=== PATIENT | male | born 2000 | race Caucasian/White ===

== ENCOUNTER 2024-02-03 12:31 | Emergency (ER) | payer OTHER ==
[2024-02-03 13:05] VITALS: BP 134/79; PULSE 76; RESP 18; TEMP 97.7; BMI 25.0
== END 2024-02-03 13:02 | disposition home or self-care (01) ==
LOC: JER 12:31 → JERFT 12:31
DX: M79.651 Pain in right thigh (principal)
CPT/HCPCS: 99283-25

== ENCOUNTER 2024-06-10 20:46 | Emergency (ER) | payer OTHER ==
[2024-06-10 20:51] VITALS: BP 136/95; PULSE 64; RESP 22; TEMP 97.6; BMI 25.8
[2024-06-10] MEDS ORDERED: ACETAMINOPHEN INJECTION 100 ML ONE (21:56)
[2024-06-10] MEDS ORDERED: ONDANSETRON 4 MG/2 ML VIAL ONE (21:56)
[2024-06-10] MEDS: ONDANSETRON 4 MG/2 ML VIAL IVPUSH ONE (22:06)
[2024-06-10] MEDS: SODIUM CHLORIDE 0.9% 1000 ML INFUS.BAG IV ONE (22:06)
[2024-06-10] MEDS: ACETAMINOPHEN 1000 MG/100 ML BAG IVPB ONE (22:07)
[2024-06-10 22:09] LABS: BASO % 0.8 % (0-2.0); HEMATOCRIT 52.8 % (35.4-49); HEMOGLOBIN 16.7 GM/dL (11.7-16.9); LYMPH % 3.4 % (8-40); MCH 27.4 pg (25.7-33.7); MCHC 31.5 g/dl (32.0-35.9); MEAN PLT VOLUME 9.8 fl (7.5-11.1); MONO % 3.3 % (3.8-10.2); NEUT % 91.5 % (42.8-82.8); PLATELET COUNT 229 10^3/uL (134-434); RBC 6.07 M/mm3 (4.00-5.60); RDW 15.1 % (11.9-15.9); WHITE BLOOD COUNT 19.1 K/mm3 (4.0-10.0)
[2024-06-10 22:26] LABS: POTASSIUM 4.3 mmol/L (3.5-5.1)
[2024-06-10 22:29] LABS: CALCIUM 10.6 mg/dL (8.5-10.1)
[2024-06-10 22:30] LABS: ALBUMIN 5.1 g/dl (3.4-5.0); BLOOD UREA NITROGEN 15.5 mg/dL (7-18)
[2024-06-10 22:33] LABS: CREATININE 1.3 mg/dL (0.55-1.3)
[2024-06-10 22:34] LABS: TOT PROT 9.3 g/dl (6.4-8.2)
[2024-06-10 22:57] LABS: ANISOCYTOSIS 1+; MACROCYTOSIS 1+; TEAR DROP CELLS 1+
[2024-06-10 23:03] LABS: BILIRUBIN,TOTAL 0.8 mg/dL (0.2-1)
== END 2024-06-10 23:50 | disposition home or self-care (01) ==
LOC: JER 20:46
PROC: 3E033NZ Introduction of Analgesics, Hypnotics, Sedatives into Peripheral Vein, Percutaneous Approach (ICD-10-PCS; principal; 2024-06-10)
PROC: 3E033GC Introduction of Other Therapeutic Substance into Peripheral Vein, Percutaneous Approach (ICD-10-PCS; 2024-06-10)
DX: R11.2 Nausea with vomiting, unspecified (principal); R19.7 Diarrhea, unspecified; R10.33 Periumbilical pain; Z20.822 Contact with and (suspected) exposure to COVID-19
CPT/HCPCS: 0241U-QW; 36415; 71046-TC-FY; 80053; 83690; 85025; 93005; 93010; 99285-25; J0131